=== PATIENT | female | born 1995 | race Caucasian/White ===

== ENCOUNTER 2023-04-05 01:03 | Emergency (ER) | payer BC, SELFPAY ==
[2023-04-05 01:06] VITALS: BP 161/95; PULSE 104; RESP 16; TEMP 37; O2SAT 100; BMI 34.9
--- NOTE | 2023-04-05 01:19 | ED_ITS ---
HPI - General Adult General Chief complaint: Extremity Injury, Upper Stated complaint: right middle finger laceration Time Seen by Provider: 04/05/23 01:12 Source: patient Mode of arrival: walk-in History of Present Illness HPI narrative: The patient is coming to the ER after she sustained a laceration to the right middle finger after she was slicing some veggeis , the patient denies any other injury denies any other complaints that the patient does not remember the last time she had a tetanus booster Related Data Previous Rx's Medication Instructions Recorded bacitracin 500 unit/gram topical 1 applic topical DAILY #14 grams 04/05/23 ointment Allergies Allergy/AdvReac Type Severity Reaction Status Date / Time No Known Drug Allergies Allergy Verified 04/05/23 01:10 Review of Systems ROS Status of ROS 10 or more systems reviewed and unremarkable except as noted in history and below PFSH PFS Social History Smoking status: Never smoker Exam Narrative Exam Narrative: Nurses notes and vital signs reviewed and patient is not hypoxic. General: Well-appearing and in no apparent distress. Skin: Warm, dry, no pallor noted. No rash. Head: Normocephalic, atraumatic. Neck: Supple, non-tender. Eye: Pupils are equal, round and EOMI. No scleral icterus. Ears, Nose, Mouth, and Throat: TM are clear, no nasal mucosal hypertrophy. Oral mucosa is moist, no posterior oropharynx erythema, uvula is mid-line Cardiovascular: Regular Rate and Rhythm without murmur, gallop or rub. Respiratory: No accessory muscle use or respiratory distress. Lungs are clear to auscultation, no wheezing, rales or rhonchi Chest Wall: no tenderness Back: No midline thoracic or lumbar vertebral tenderness. No CVA tenderness Musculoskeletal: normal ROM, no calf or popliteal tenderness, no lower extremity edema/swelling to the tip of the right middle finger the patient have an area of almost, 2 x 3 mm oval in shape taking the skin of the tip of the finger not reaching the nail and there is no exposure to any underlying stru cture there is no foreign body there is no tendon injury GI: Abdomen is soft, non-distended. Normal bowel sounds. No masses appreciated. No tenderness to palpation. No rebound, guarding, or rigidity noted. Neurological: A&O x4. No cranial nerve dysfunction observed. No truncal ataxia. Moves all extremities. Sensation intact. Psychiatric: Cooperative and interactive. Normal mood and affect. Constitutional Vital Signs, click to edit/add: Last Vital Signs Temp 98.6 F 04/05/23 01:06 Pulse 104 H 04/05/23 01:06 Resp 16 04/05/23 01:06 BP 161/95 H 04/05/23 01:06 Pulse Ox 100 04/05/23 01:06 O2 Del Method Room Air 04/05/23 01:06 Course Vital Signs Vital signs: Vital Signs Temperature 98.6 F 04/05/23 01:06 Pulse Rate 104 H 04/05/23 01:06 Respiratory Rate 16 04/05/23 01:06 Blood Pressure 161/95 H 04/05/23 01:06 Pulse Oximetry 100 04/05/23 01:06 Oxygen Delivery Method Room Air 04/05/23 01:06 Temperature 98.6 F 04/05/23 01:06 Pulse Rate 104 H 04/05/23 01:06 Respiratory Rate 16 04/05/23 01:06 Blood Pressure 161/95 H 04/05/23 01:06 Pulse Oximetry 100 04/05/23 01:06 Oxygen Delivery Method Room Air 04/05/23 01:06 Medical Decision Making MDM Narrative Medical decision making narrative: The patient wound was cleaned thoroughly after which initially applying Gelfoam was not enough to control bleeding then the patient had a finger block with 1% lidocaine almost 2 to 3 cc infiltrated to the area at the third metacarpal phalangeal joint and the patient tolerated the procedure well after that the patient had 3 stitches applied to the tip of the finger The patient also had a clean dressing applied as well as finger splint instructed to keep the hand clean and dry The patient was instructed about proper wound care The patient is to follow up with primary care physician in next 2-3 days or to return to the emergency department should any of the signs or symptoms worsen or new symptoms develop. The patient agrees with the following Diagnosis and Treatment plan and the patient will be discharged home. Discharge Plan Discharge Chief Complaint: Extremity Injury, Upper Clinical Impression: Finger laceration Patient Disposition: Home, Self-Care Time of Disposition Decision: 01:27 Condition: Good Prescriptions / Home Meds: New bacitracin 500 unit/gram ointment 1 applic topical DAILY Qty: 14 0RF Instructions: Finger Laceration (ED) Stand Alone Forms: Portal Instructions Referrals: HEIDY ORTIZ [Primary Care Provider] - 1 week
[2023-04-05] MEDS: SURGIFOAM GEL SPONGE SIZE 100 1 EACH TOPICAL (01:43)
[2023-04-05] MEDS: ADACEL DIPH,PERTUSS(ACELL),TET VAC/PF 0.5 ML ADULT SYRINGE IM (01:44)
[2023-04-05] MEDS: LIDOCAINE HCL 1% 100 MG/10 ML MDV INJ (02:02)
== END 2023-04-05 02:39 | disposition home or self-care (01) ==
PROVIDERS: Emergency Provider Emergency Medicine; PCP Family Medicine
DX: S61.212A Laceration without foreign body of right middle finger without damage to nail, initial encounter (principal); Z23 Encounter for immunization; W26.8XXA Contact with other sharp object(s), not elsewhere classified, initial encounter
CPT/HCPCS: 12001; 90471; 90715; 99283

== ENCOUNTER 2025-01-17 08:05 | Outpatient (OUT) | payer BC, SELFPAY ==
[2025-01-17 09:06] LABS: Hematocrit 38.7 % (36.0-48.0); Hemoglobin 12.4 g/dL (12.0-16.0); Immature Granulocytes Abs Auto 0.01 10^3/uL (0.00-0.03); Immature Granulocytes Pct Auto 0.2 % (0.0-0.5); Lymphocytes Absolute Auto 1.9 10^3/uL (1.2-3.8); Mean Corpuscular HGB Conc 32.0 g/dL (29.9-35.2); Mean Corpuscular Hemoglobin 25.6 pg (26.7-34.0); Mean Corpuscular Volume 80.0 fL (81.0-99.0); Platelet Count 263 10^3/uL (150-450); Red Blood Count 4.84 10^6/uL (4.20-5.40); White Blood Count 5.8 10^3/uL (4.0-11.0)
[2025-01-17 09:52] LABS: Alanine Aminotransferase 23 U/L (14-59); Albumin Globulin Ratio 1.1; Albumin Level 4.1 g/dL (3.4-5.0); Alkaline Phosphatase 93 U/L (46-116); Anion Gap 8.9; Aspartate Amino Transferase 13 U/L (15-37); Blood Urea Nitrogen 8.0 mg/dL (7.0-18.0); Calcium 9.5 mg/dL (8.5-10.1); Carbon Dioxide 27.9 mmol/L (21.0-32.0); Chloride 106 mmol/L (98-107); Cholesterol 152 mg/dL (<=200); Estimated GFR (African America >60 (>=60 mL/min/1.73m^2); Estimated GFR (Non-African Ame >60 (>=60 mL/min/1.73m^2); Globulin 3.9 g/dL; Glucose 100 mg/dL (74-106); HDL Cholesterol 50 mg/dL (40-60); Potassium 3.8 mmol/L (3.5-5.1); Sodium 139 mmol/L (136-145); Total Protein 8.0 g/dL (6.4-8.2); Triglycerides 97 mg/dL (<=150); VLDL CHOLESTEROL 19.4 mg/dL
== END 2025-01-17 08:06 | disposition home or self-care (01) ==
PROVIDERS: PCP Family Medicine; Visit Provider Family Medicine
DX: Z00.00 Encounter for general adult medical examination without abnormal findings (principal); E55.9 Vitamin D deficiency, unspecified
CPT/HCPCS: 36415; 80053; 80061; 82306; 85025

== ENCOUNTER 2025-06-05 09:39 | Emergency (ER) | payer BC, SELFPAY ==
--- OUTSIDE RECORDS SUMMARY | 2023-12-05 05:30 | XMS_ITS ---
Author Organization The [facility] in [place] Address [address] [place] [address] Care Team Providers Care Butt Presser Name Role Phone Eleni Fisher Primary Care Provider [phone] REASON FOR VISIT wellness/pap? Encounters Encounter Location Date Provider Diagnosis [facility] [address] [place] [address] 12/05/2023 Eleni Fisher Plan Of Treatment Next Appt Details Provider Name:Eleni Mark es, 06/07/2025 10:45:00 AM, [address] [place], [address], Progress Notes * YONGValeriacy LDOB: 7 (29 yo F)Acc No.[id number]:12/05/2023 UNLOCKED PROGRESS NOTE Progress Note Patient: Kimberly ORDOÑEZ :?ARGENIS DuttaOB:1995???Age:28 Y ???Sex:FemaleDate:12/05/2023hone:[phone]:[address] [place] [id number] Subjective: * Chief Complaints: * 1 . Wellness/pap?. * Medical History: Objective: * Vitals: Assessment: Plan: * Treatment: * * Electronic signature of Eleni Fisher MD, [id number] on 06/05/2025 at 10:17 AM ESTSign off status: PendingVisit Status:?R/S (Rescheduled) * Provider: Samara Fisher MD Date: 0 12/05/2023 Generated for Printing/Faxing/eTransmitting on:?06/05/2025 10:17 AM EST
--- OUTSIDE RECORDS SUMMARY | 2025-05-23 05:15 | XMS_ITS ---
Author Organization The [facility] in [place] Address [address] [place] [address] Care Team Providers Care Fur Glazer Name Role Phone Eleni Fisher Primary Care Provider [phone] REASON FOR VISIT back pain, possible uti Encounters Encounter Location Date Provider Diagnosis [facility] [address] [place] [address] 05/23/2025 Eleni Fisher Plan Of Treatment Next Appt Details Provider Name:Eleni Mark es, 06/07/2025 10:45:00 AM, [address] [place], [address], Progress Notes * EARNESTINEKimberly ECHEVARRIA LDOB: 7 (29 yo F)Acc No.[id number]:05/23/2025 UNLOCKED PROGRESS NOTE Progress Note Patient: Kimberly ORDOÑEZ :?ARGENIS DuttaOB:1995???Age:29 Y ???Sex:FemaleDate:05/23/2025Phone:[phone]:[address] [place] [address] Subjective: * Chief Complaints: * 1 . Back pain, possible uti. * Medical History: Objective: * Vitals: Assessment: Plan: * Treatment: * * Electronic signature of Eleni Fisher MD, [id number] on 06/05/2025 at 10:17 AM ESTSign off status: PendingVisit Status:?CANC (Cancelled) * Provider: Samara Fisher MD Date: 07/24/2024 Generated for Printing/Faxing/eTransmitting on:?06/05/2025 10:17 AM EST
--- OUTSIDE RECORDS SUMMARY | 2025-06-04 06:15 | XMS_ITS ---
Author Organization The [facility] in [place] Address [address] [place] [address] Care Team Providers Care Automobile Assembly Supervisor Name Role Phone Eleni Fisher Primary Care Provider [phone] REASON FOR VISIT back pain Encounters Encounter Location Date Provider Diagnosis [place] [address] [place] [address] 06/04/2025 Eleni Fisher Plan Of Treatment Next Appt Details Provider Name:Eleni Mark es, 06/07/2025 10:45:00 AM, [address] [place], [address], Progress Notes * MOIRAValeriacy LDOB: 7 (29 yo F)Acc No.[id number]:06/04/2025 UNLOCKED PROGRESS NOTE Established Patient: Kimberly ORDOÑEZ :?Eleni Fisher MDDOB:1995???Age:29 Y ???Sex:FemaleDate:06/04/2025Phone:[phone]:[address] [place] [address] Subjective: * Chief Complaints: * 1 . Back pain. * Medical History: Objective: * Vitals: Assessment: Plan: * Treatment: * * Electronic signature of Eleni Fisher MD, [id number] on 06/05/2025 at 10:17 AM ESTSign off status: PendingVisit Status:?R/S (Rescheduled) * Provider: Samara Fisher MD Date: 1 08/05/2024 Generated for Printing/Faxing/eTransmitting on:?06/05/2025 10:17 AM EST
--- OUTSIDE RECORDS SUMMARY | 2025-06-05 04:25 | XMS_ITS | Continuity of Care Document ---
Author Organization [facility] Address [address] [place] [address] Phone Care Team Providers Care General Office Assistant Name Role Phone Eleni Fisher MD Primary Care Provider Kathryn Harper APRN Attending Provider Nancy Padgett APRN Attending Provider [phone] Care Teams Patient Care Team Team Status: Active Member Role/Relationship Status Dates Eleni Fisher MD Primary Care Provider Active Visit Care Team Team Status: Inactive Member Role/Relationship Status Dates Eleni Fisher MD Primary Care Provider Active Start: April 10, 2025 End: April 10, 2025Yanni Lomax ProviderActiveStart: April 10, 2025 End: April 10, 2025 Patient Care Team Team Status: Inactive Member Role/Relationship Status Dates Eleni Fisher MD Primary Care Provider Active Start: June 05, 2025 End: June 05Yanni Stern ProviderActiveStart: June 05, 2025 End: June 05, 2025 Chief Complaint and Reason for Visit Chief Complaint Admit Date Low back pain April 10, 2025 9 :06am back pain,chills,sweats June 05 9:02am Reason for Visit Admit Date Sciatica, right side April 10, 2025 9:06am Allergies, Adverse Reactions, Alerts Allergen Type Severity Reaction Last Updated Verified Status acetaminophen Allergy Mild Vomiting June 05, 2025 9:03a m Yes Active oxycodone Allergy Mild Vomiting June 05, 2025 9:03am Ye s Active Social History Smoking Status Status Start Date End Date Date of Observa tion Never smoked tobacco (finding) August 29, 2024 9:27am Observation Status Observation Response Date of Response Legal Sex Female (finding) [facility] 1995 Problems Active Problems Problem Diagnosis/Recorded Date Onset Date Stat us Sciatica, right side April 10, 2025 8:51am Unknown Active Strain of fascia of lower back August 29, 2024 9:03am Unknown Active Lower back pain August 29, 2024 8:53am Unknown A ctive Primary osteoarthritis of both knees August 29, 2024 8:20am Unknown Active Anxiety August 29, 2024 8:20am Unknown Acti ve Patellar bursitis of left knee August 29, 2024 8:20am Unknown Active Bursitis of right patella August 29, 2024 8:20am Unkn own Active Kidney stones August 29, 2024 8:20am Unknown Act rico GERD (gastroesophageal reflux disease) August 29 8:20am Unknown Active Allergic rhinitis August 29, 2024 8:20am Unknown Active Medications Medication Status Dose Units Route Directions Qty Days Refills S tart Date Stop Date End Date Reason(s) Instructions Adherence Ibuprofen (Advil) 200 mg Tablet Discontinued 200 MG PO Three times daily as needed for Pain September 17, 2018 11:00pmOctw[facility] 2024 8:08amMedroxyprogesterone 150 mg/mL nkbvzbvYhbnuosauzkd199MJFUGgoba 2018 11:00pmMar 2024 8:26am Ciprofloxacin Hcl 500 mg dldovhDarxyfjjkrtk648LFVEL39R47Ltkcb 2018 11:00pm August 29, 2024 8:18amOxycodone-Acetaminophen 5-325 mg vtiqpiUwqsfoxjqrmx2EDHUP Q6H as needed for xzlo8556Bsjgb 2018Mar2024 8:25amCalculus of kidneyOmeprazole 20 mg capsule,delayed release(DR/EC)Ctksbx86KVVEIdcnhRvmxp 2024 11:00pmComplies with drug therapyAlbuterol Sulfate 90 mcg/actuation HFA aerosol kjesofsOuiegk9VVSAGQZWTRDJRKLgbbr 4 hoursMar 2024 11:00pm FreeTextSi puff as needed Inhalation every 4 hrs; Note: Source Status: Taking; Provider: Rajesh Yarbrough ( )Complies with drug therapy Sertraline 25 mg xlkhtpIxcdgh23PXPWPszyuBdiwz 2024 11:00pmFreeTextSi 1/2 tablet Orally Once a day; Note: Source Status: Taking; Refills: 0; Provider: DIANA HEATSIERRA TUCSONComplies with drug therapyNaproxen 500 mg lvbnqcYpyvhngkizty460VX POTwice daily as needed for rivl55743Htrko 2024 11:00pmOctwilliamson arh hospital 2024 8:08amCyclobenzaprine 10 mg amzpqtDubspezvklww24BDKLXcaqa times daily as needed for muscle elbdb9249Yotre 2024 11:00pmOctwilliamson arh hospital 2024 8:08amLidocaine 5 % adhesive patch,fodwcltfjDtjfrfjafxsu0FLTJTCAHVMLFDuiay091Tzhva 2024 11:00pmOctwilliamson arh hospital 2024 8:08amleave on most painful area for up to 12 hrs Ergocalciferol (Vitamin D2) 1,250 mcg (50,000 unit) qlqtopzMjalnt6679BORMNxvmat weekFormerly [facility] 2024 11:00pmComplies with drug therapyCyclobenzaprine 10 mg nkbeehVmmvpm00WYWDVkhwz times daily as needed for muscle tphnd7413Efabzyb 2024 11:00pmComplies with drug therapyPrednisone 20 mg qftgbvUftznjfvsvmz45ZGLC .YTKGUGW023Uimvxnb 2024 11:00pmDeceer 2024 9:04amTake 3 tabs po daily x 3 days, then take 2 tabs po daily x 3 days, then take 1 tab po daily x 3 days.Lidocaine 5 % adhesive patch,wowmbrvbaGfjswg8ZFBBQXGWNDWJMldyf203Gjrkrtp 2024 11:00pmleave on most painful area for up to 12 hrsComplies with drug therapyTamsulosin 0.4 mg capsuleActiveMGPODeceer 2024 12:00amComplies with drug therapy Vital Signs Vital Reading Result Reference Range Collection Date/Time Height 65 [in_i] April 10, 2025 8:02jnVueyfo691.32 kgOctwilliamson arh hospital 2024 8:09amBody Pwhuoheulhk94.8 [degF]97.6-99.0Octwilliamson arh hospital 2024 8:09amHeart Rate97 /hip16-230 April 10, 2025 8:09amRespiratory rate16 /jmt19-86Zdffbcm 2024 8:09am Oxygen saturation by Pulse ldaovqpm32 %95-100Octwilliamson ar[facility] hospital 2024 8:09amBP Oyhctmlq962 mm[Hg]100-140Octwilliamson arh hospital 2024 8:31amBP Mspjpoodb82 mm[Hg]60-100 April 10, 2025 8:31amBMI (Body Mass Index)38.2 kg/g9Zjegikv 2024 8:39ypEjztqh58 [in_i]June 05, 2025 9:95blEzhazn685.32 kgDeceer 2024 9:11amBody Qvkqynnaagb89.9 [degF]97.6-99.0Deceer 2024 9:11amHeart Rzlc675 /zqk40-758Lzkwdslk 2024 9:11amRespiratory rate18 /uid44-94Incpijxt 2024 9:11amOxygen saturation by Pulse woapsdor25 %95-100Deceer 2024 9:11amBP Kmsdhmzk129 mm[Hg]100-140December 2024 9:11amBP Ddgklqmzr48 mm[Hg]60-100Deceer 2024 9:11amBMI (Body Mass Index)38.2 kg/i8Yscngeca 2024 9:11am Advance Directives Advance Directive Response Recorded Date/ Time Advance Directives No September 12 2:14pm Insurance Providers Guarantor Kimberly Pizarro Address [address] [place] [id number] Info.Home Phone: Payer Group Member ID Coverage Type Subscriber Relationship to Subscriber Effective Date Expiration Date Rafal Cowan Id: [id number] Canter Id: [id number] [address] [facility] [address] Home Phone: Email: declined [employer] [employer] [place] [id number] Canter Id: [id number] [address] [facility] [address] Home Phone: Email: declined [employer] Encounters Encounter Location(s) Arrival/Admit Date Discharge/Departure Date Discharge/Departure Disposition Provider(s) Departed Physician/ Provider Office Visit -[facility] April 10, 2025 9:06am April 10, 2025 9:49am Discharged to home care or self care (routine discharge) Miguelito Taylor APRN Departed Physician/ Provider Office Visit -[facility] June 05, 2025 9:02am June 05, 2025 9:24am Discharged to home care or self care (routine discharge) Miguelito Bang APRN Recent Diagnosis Onset Date Admit Date Sciatica, right side Unknown March 9:06am Assessments Diagnosis Onset Date Resolution Status Admit Date Sciatica, right side acuteOctober 2024 9:06am Plan of Treatment Author Kathryn Harper [facility]oredOctw[facility] 2024 8:53amExam concerning for sciatica. Patient had naproxen this AM already-500mg. Will treat with prednisone taper. Take with food. PRN flexeril- may cause drowsiness, caution advised. Continue tylenol, prn lidocaine patches. Discussed option of xray. Patient would like to hold off and check insurance coverage deductible. Recommend FU with PCP if not gradually improving over next week. Heat, gentle stretching, rest encouraged. Future Tests Future scheduled test information is unavailable Pending Tests Pending diagnostic test information is unavailable Future Visits Future appointment information is unavailable Future Procedures Future procedure information is unavailable Future Medications Future medication information is unavailable Patient Instructions Patient instructions are unavailable
[2025-06-05 09:44] VITALS: BP 161/98; PULSE 111; TEMP 37.1; O2SAT 99; BMI 38.3
--- NOTE | 2025-06-05 09:54 | CT_ITS ---
The [address] [address] Patient Name: ELLIOTT BEACH MRN: [id number] date: 1995 Sex: F Assigned Patient Location: ER Current Patient Location: .[facility] Accession/Order Number: [id number] Exam Date: 06/05/2025 10:33 Report Date: 06/05/2025 11:04 At the request of: LILA DELANEY DO Procedure: CT abdomen pelvis wo con CT ABDOMEN AND PELVIS WITHOUT CONTRAST COMPARISON: 10/14/2018 CLINICAL DATA: Right flank, groin and vaginal pain with pressure. Hematuria for the past few weeks. Spiral axial unenhanced images were obtained through the abdomen and pelvis. This CT exam was performed using one or more following dose reduction techniques: Automated exposure control, adjustment of the mA and/or kV according to patient size, or use of iterative reconstruction technique. Limited cuts through the lung bases show no contributory findings. Assessment of the intra-abdominal organs is slightly limited by the absence of contrast. There is cholelithiasis, without complication. No intrahepatic masses are identified. The spleen, pancreas and adrenal glands show no acute findings. No renal stones are identified on the left. A stone is present in the midpole region on the right measuring 8 mm in size. There is still slight fullness of the renal pelves, right greater than left however no calyceal dilatation. No ureteral dilatation or stones are seen. The abdominal aorta is normal caliber. Small mesenteric lymph nodes are present. No ascites is seen. The small bowel loops are normal caliber. There is mild right-sided colonic stool. The descending colon is decompressed. There is subtle thoracolumbar levoscoliotic curvature Images through the pelvis show no appendiceal inflammation. There is no dilated small bowel. The distal colon is decompressed. No diverticular disease is seen. There is a 2.4 cm left ovarian cyst. The urinary bladder is not well-distended for evaluation. There are no obvious intraluminal abnormalities. No ascites is seen. Small inguinal lymph nodes are again seen. CT/CT abdomen pelvis wo con IMPRESSION: CHOLELITHIASIS. RIGHT NEPHROLITHIASIS. NO BOWEL OR URINARY TRACT OBSTRUCTION. SMALL LEFT OVARIAN CYST. Impression dictated by: Suzy Brewer M.D. 06/05/2025 11:04 AM Dictation Location: [place] [address] Electronically authenticated by: [id number] Y Date: 06/05/2025 11:04
--- NOTE | 2025-06-05 10:09 | ED_ITS ---
HPI HPI - General Adult General Chief complaint: Urogenital-Female Stated complaint: NAUSEA, VOMITING, BACK & PELVIC PAIN Time Seen by Provider: 06/05/25 09:54 Source: patient Mode of arrival: walk-in History of Present Illness HPI narrative: Patient is a 29-year-old female presenting to the emergency department for evaluation of right-sided flank/abdominal pain. Patient states she has had been having pain in the right side of her back for the last year. She has a history of kidney stones. She has been having intermittent pain in the right flank for a while, however over the last week she has been having nausea, vomiting, and right-sided abdominal pain as well. She notes some blood in her urine, however this cleared up. She is seen by urgent care and obtain an x-ray of her abdomen which was negative. She was treated with Flomax and discharged home. She feels feverish and is complaining of pain in the right side of her flank/abdomen. She states she has vomited a few times and has been unable to keep food down. She states the abdominal pain is constant in nature. She states she has pressure in the lower part of her bladder with increased urinary frequency. No dysuria. She denies history of intra-abdominal surgeries. She is otherwise healthy with no chronic medical conditions. Related Data Home Medications ?Medication ?Instructions ?Recorded ?Confirmed omeprazole 20 mg capsule,delayed mg 06/05/25 release sertraline 25 mg tablet mg 06/05/25 tramadol 50 mg tablet mg 06/05/25 Previous Rx's ?Medication ?Instructions ?Recorded ondansetron 4 mg disintegrating 4 mg PO Q8H PRN nausea and 06/05/25 tablet vomiting 5 days #10 tabs tamsulosin 0.4 mg capsule 0.4 mg PO DAILY #14 caps tramadol 50 mg tablet 50 mg PO Q8H PRN pain 5 days #10 06/05/25 tabs Allergies Allergy/AdvReac Type Severity Reaction Status Date / Time No Known Drug Allergies Allergy Verified 06/05/25 09:43 Opioid HPI Opioid Management Most Recent Opioid Data: Last Pain Scale 5 Today, 10:21 Last AUG Pain Assessment Today, 10:21 Review of Systems ROS Status of ROS 10 or more systems reviewed and unremark able except as noted in history and below PFSH PFSH Social History Smoking status: Never smoker Little interest or pleasure in doing things: not at all Feeling down, depressed, or hopeless: not at all Exam Narrative Exam Narrative: CONSTITUTIONAL: Nontoxic appearing, answering questions and following commands appropriately SKIN: Was warm and dry. EYES: Sclerae white. EARS, NOSE, THROAT: Moist oral mucosa. RESPIRATORY: Clear to auscultation bilaterally, no wheezes, crackles, or stridor, no use of accessory muscles CARDIOVASCULAR: Normal rate and regular rhythm. There is no S3, S4, murmur, rub. GASTROINTESTINAL: There is tenderness to palpation in the right upper quadrant. Negative Matute sign. Negative CVA tenderness bilaterally. No tenderness at McBurney's point. MUSCULOSKELETAL: No peripheral edema. NEUROLOGIC: Patient is awake and alert. Facies were symmetrical. Constitutional Vital Signs, click to edit/add: Last Vital Signs Temp 98.8 F 06/05/25 09:44 Pulse 111 H 06/05/25 09:44 Resp 16 06/05/25 09:44 BP 157/92 H 06/05/25 11:32 Pulse Ox 99 06/05/25 10:27 O2 Del Method Room Air 06/05/25 09:44 Course Vital Signs Vital signs: Vital Signs Temperature 98.8 F 06/05/25 09:44 Pulse Rate 111 H 06/05/25 09:44 Respiratory Rate 16 06/05/25 09:44 Blood Pressure 161/98 H 06/05/25 09:44 Pulse Oximetry 99 06/05/25 09:44 Oxygen Delivery Method Room Air 06/05/25 09:44 Temperature 98.8 F 06/05/25 09:44 Pulse Rate 111 H 06/05/25 09:44 Respiratory Rate 16 06/05/25 09:44 Blood Pressure 157/92 H 06/05/25 11:32 Pulse Oximetry 99 06/05/25 10:27 Oxygen Delivery Method Room Air 06/05/25 09:44 Medical Decision Making MDM Narrative Medical decision making narrative: Patient is a 29-year-old female presenting to the emergency department with right flank/right upper quadrant pain x 1 week. Her vital signs arrival are significant for hypertension and tachycardia, likely related to her acute pain. She is otherwise afebrile and hemodynamically stable. Examination as outlined above. Differential diagnosis includes nephrolithiasis, cholecystitis, cholelithiasis, gastritis, pyelonephritis, or other electrolyte/metabolic derangement. IV was established and laboratory studies were obtained. CT abdomen/pelvis was ordered. She was treated symptomatically with 1 L bolus normal saline, IV ketorolac, IV morphine, and IV Zofran. CT abdomen/pelvis independently reviewed and interpreted by myself and radiology demonstrated nonobstructing 8 mm nephrolithiasis within the pole of the right kidney. Cholelithiasis without evidence of cholecystitis. Laboratory studies were unremarkable. No significant electrolyte or metabolic derangement. No evidence of acute kidney injury. No anemia, leukocytosis, or thrombocytopenia. No transaminitis or hyperbilirubinemia. test negative. Lipase not elevated. Urinalysis negative for acute infection. On reevaluation, patient states she feels improved since her ED arrival. Her pain is now rated a 2/10, initially was a 6/10. Her presentation is consistent with nephrolithiasis and/or symptomatic cholelithiasis. I do believe she stable for discharge. She is tolerating p.o. and her pain is under control. I gave her information for the surgery clinic and urology clinic for further care. Return precautions were given including any new or concerning symptoms such as intractable right upper quadrant pain, fevers, or inability to tolerate oral intake. Patient understands and agrees to plan. FINAL IMPRESSION: #Acute symptomatic cholelithiasis #Acute right-sided nephro lithiasis DISPOSITION: Discharged home CONDITION: Good Medical Records Medical records reviewed: Yes I reviewed the patient's medical records Lab Data Lab results reviewed: Yes I reviewed the patient's lab results Labs: Lab Results 06/05/25 06/05/25 Range/Units 09:56 10:03 WBC 11.0 (4.0-11.0) 10^3/uL RBC 4.95 (4.20-5.40) 10^6/uL Hgb 12.7 (12.0-16.0) g/dL Hct 39.5 (36.0-48.0) % MCV 79.8 L (81.0-99.0) fL MCH 25.7 L (26.7-34.0) pg MCHC 32.2 (29.9-35.2) g/dL RDW 13.7 (11.0-15.0) % Plt Count 291 (150-450) 10^3/uL MPV 10.8 (9.5-13.5) fL Neut % (Auto) 64.3 (43.0-75.0) % Lymph % (Auto) 25.3 (20.5-60.0) % Calloway % (Auto) 6.2 (1.7-12.0) % Eos % (Auto) 3.2 (0.9-7.0) % Baso % (Auto) 0.8 (0.2-2.0) % Neut # (Auto) 7.1 H (1.4-6.5) 10^3/uL Lymph # (Auto) 2.8 (1.2-3.8) 10^3/uL Calloway # (Auto) 0.7 (0.3-0.8) 10^3/uL Eos # (Auto) 0.4 (0.0-0.7) 10^3/uL Baso # (Auto) 0.1 (0.0-0.1) 10^3/uL Abs Immat Gran (auto) 0.02 (0.00-0.03) 10^3/uL Imm/Tot Granulo (auto) 0.2 (0.0-0.5) % Sodium 139 (136-145) mmol/L Potassium 3.6 (3.5-5.1) mmol/L Chloride 103 (98-107) mmol/L Carbon Dioxide 28.2 (21.0-32.0) mmol/L Anion Gap 11.4 BUN 6.0 L (7.0-18.0) mg/dL Creatinine 0.55 (0.55-1.02) mg/dL Est GFR ( Amer) >60 (>=60 mL/min/1.73m^2) Est GFR (Non-Af Amer) >60 (>=60 mL/min/1.73m^2) BUN/Creatinine Ratio 10.9 Glucose 99 (74-106) mg/dL Calcium 9.2 (8.5-10.1) mg/dL Total Bilirubin 0.2 (0.2-1.0) mg/dL AST 17 (15-37) U/L ALT 29 (14-59) U/L Alkaline Phosphatase 84 (46-116) U/L Total Protein 7.7 (6.4-8.2) g/dL Albumin 4.1 (3.4-5.0) g/dL Globulin 3.6 g/dL Albumin/Globulin Ratio 1.1 Lipase 39.0 (16.0-77.0) U/L Serum HCG, Qual Negative (NEGATIVE) Urine Color Lt. yellow (YELLOW) Urine Clarity Sl cloudy (CLEAR) Urine pH 7.0 (5.0-9.0) Ur Specific Vickery 1.025 (1.005-1.025) Urine Protein Negative (NEG/TRACE) mg/dL Urine Glucose (UA) Negative (NEGATIVE) mg/dL Urine Ketones Negative (NEGATIVE) mg/dL Urine Occult Blood Large A (NEGATIVE) Urine Nitrite Negative (NEGATIVE) Urine Bilirubin Negative (NEGATIVE) Urine Urobilinogen 0.2 (0.2-1.0) EU/dL Ur Leukocyte Esterase Negative (NEGATIVE) Urine RBC 20-50 A (0-2) #/HPF Urine WBC 0-2 A (NONE SEEN) #/HPF Ur Squamous Epith Cells Moderate A (NONE/RARE) #/LPF Urine Crystals None seen (None Seen) #/HPF Urine Bacteria Trace A (NONE SEEN) #/HPF Urine Casts None seen (NONE SEEN) #/LPF Urine Mucus Small A (NONE SEEN) Ur Culture Indicated? No Imaging Data CT scan - abdomen: Attestation: I personally reviewed and interpreted this imaging study as follows: Radiologist's impression: ITS Impressions Abdomen/Pelvis CT 06/05/25 09:54 IMPRESSION: CHOLELITHIASIS. RIGHT NEPHROLITHIASIS. NO BOWEL OR URINARY TRACT OBSTRUCTION. SMALL LEFT OVARIAN CYST. Impression dictated by: Suzy Brewer M.D. 06/05/2025 11:04 AM Dictation Location: [facility] Electronically authenticated by: [id number] Y Date: 06/05/2025 11:04 Discharge Plan Discharge Chief Complaint: Urogenital-Female Clinical Impression: Cholelithiasis, Kidney stone on right side Patient Disposition: Home, Self-Care Time of Disposition Decision: 11:23 Condition: Good Mode of Transportation: Private Vehicle Prescriptions / Home Meds: New ondansetron 4 mg tablet,disintegrating 4 mg PO Q8H PRN (Reason: nausea and vomiting) 5 Days Qty: 10 0RF tramadol 50 mg tablet 50 mg PO Q8H PRN (Reason: pain) 5 Days Qty: 10 0RF tamsulosin 0.4 mg capsule 0.4 mg PO DAILY Qty: 14 0RF No Action tramadol 50 mg tablet sertraline 25 mg tablet omeprazole 20 mg capsule,delayed release(/EC) Print Language: Greek Instructions: Gallstones (ED), Kidney Stones (ED) Referrals: Ivan Williamson MD [Physician, Urology] - 1 week HEIDY ORTIZ [Primary Care Provider, Family Practice] - 1 week Néstor Jeffers DO [Physician, General Surgery] - As needed Discharge Date/Time: 06/05/25 11:46
[2025-06-05 10:11] LABS: Hematocrit 39.5 % (36.0-48.0); Hemoglobin 12.7 g/dL (12.0-16.0); Immature Granulocytes Abs Auto 0.02 10^3/uL (0.00-0.03); Immature Granulocytes Pct Auto 0.2 % (0.0-0.5); Lymphocytes Absolute Auto 2.8 10^3/uL (1.2-3.8); Mean Corpuscular HGB Conc 32.2 g/dL (29.9-35.2); Mean Corpuscular Hemoglobin 25.7 pg (26.7-34.0); Mean Corpuscular Volume 79.8 fL (81.0-99.0); Platelet Count 291 10^3/uL (150-450); Red Blood Count 4.95 10^6/uL (4.20-5.40); White Blood Count 11.0 10^3/uL (4.0-11.0)
[2025-06-05 10:15] LABS: Glucose Urine UA NEGATIVE (NEGATIVE)
[2025-06-05] MEDS: 0.9 % SODIUM CHLORIDE 1,000 ML 1000 ML IV (10:15)
--- OUTSIDE RECORDS SUMMARY | 2025-06-05 10:17 | XMS_ITS | Patient Health Record ---
Author Organization [facility] in [place] Address [address] [place] [address] Care Team Providers Care Apparel Embroidery Digitizer Name Role Phone Eleni Fisher Primary Care Provider Allergies Allergen (clinical drug ingredient) Drug/Non Drug Allergy documented on EMR Reaction Allergy Type Onset Date Status acetaminophen / oxycodone percocet (uncoded) nausea/vomiti ng Allergy Active Results Component Value Reference Range Notes CBC AUTO DIFF Reviewed date:03/21/2025 04:38:43 PM Interpretation: Performing Lab: Notes/Report: [facility] , White Blood Count 5.8 4.0-11.0 10 3/uL Red Blood Count4.844.20-5.40 10 6/xRSjvbceieqn37.412.0-16.0 g/fPVocfvabgds26.7 36.0-48.0 %Mean Corpuscular Yaaopt55.081.0-99.0 fLMean Corpuscular Hemoglobin 25.626.7-34.0 pgMean Corpuscular HGB Conc32.029.9-35.2 g/dLRed Cell Distribution Width14.111.0-15.0 %Platelet Gqflo421581-903 10 3/uLMean Platelet Jlxall52.69.5- 13.5 fLNeutrophils Percent Auto55.043.0-75.0 %Lymphocytes Percent Auto33.520.5- 60.0 %Monocytes Percent Auto6.11.7-12.0 %Eosinophils Percent Auto4.20.9-7.0 % Basophils Percent Auto1.00.2-2.0 %Immature Granulocytes Pct Auto0.20.0-0.5 % Neutrophils Absolute Auto3.21.4-6.5 10 3/uLLymphocytes Absolute Auto1.91.2-3.8 10 3/uLMonocytes Absolute Auto0.40.3-0.8 10 3/uLEosinophils Absolute Auto0.20.0- 0.7 10 3/uLBasophils Absolute Auto0.10.0-0.1 10 3/uLImmature Granulocytes Abs Auto0.010.00-0.03 10 3/uLPerforming Lab:see noteML - [facility] LB LIPID PROFILE Reviewed date:03/21/2025 04:38:43 PM Interpretation: Performing Lab: Notes/Report: [facility] ,Tljsdljexipxn64<=150 mg/yNHlwndsduujg848<=200 mg/dLHDL Mohdxciwihv9134-44 mg/dL > or =60 mg/dl - LOW CARDIOVASCULAR RISK <40 mg/dl - HIGH CARDIOVASCULAR RISK LDL Cholesterol Drfoyfcqon54.6 100-129 mg/dl NEAR OR ABOVE OPTIMAL >190 mg/dl VERY HIGH 160-189 mg/dl HIGH 130-159 mg/dl BORDERLINE HIGH <100 mg/dl OPTIMAL VLDL YKUPRIXQVUZ84.4Chol HDL Ratio3.0 4.4 - 7.1 AVERAGE RISK 3.3 - 4.4 LOW RISK 7.1 - 11.0 MODERATE RISK >11.0 HIGH RISK Performing Lab:see noteML - [facility] LBPROF 14(COMP METB) Reviewed date:03/21/2025 04:38:43 PM Interpretation: Performing Lab: Notes/Report: [facility] ,Rjrihp406495-304 mmol/LPotassium3.83.5-5.1 mmol/KSftyedhv64210-582 mmol/LCarbon Ndlhdto17.921.0-32.0 mmol/LAnion Gap8.9Cfppqol10358-255 mg/dLBlood Urea Nitrogen 8.07.0-18.0 mg/dLCreatinine0.620.55-1.02 mg/dLEstimated GFR ( Rajni>60 >=60 mL/min/1.73m 2Estimated GFR (Non- Ana>60>=60 mL/min/1.73m 2BUN Creatinine Ratio12.8Smosuuh1.58.5-10.1 mg/dLBilirubin Total0.60.2-1.0 mg/dL Aspartate Amino Wdkjiwdvrkj7696-80 U/LAlanine Ktpxzsqsbwxhrzop0628-76 U/L Alkaline Unmpjmwwwor7711-735 U/LTotal Protein8.06.4-8.2 g/dLAlbumin Level4.13.4- 5.0 g/dLGlobulin3.9Albumin Globulin Ratio1.1Performing Lab:see noteML - [facility] LBUA DIP AUTO WO MICRO ([id number]) - IN OFFICE Reviewed date:05/21/2025 08:35:00 AM Interpretation: Performing Lab: Notes/Report: COLORyellowYELLOW - AMBERCLARITYclearCLEAR - CLEARGLUCOSE, URINEnegNEG - NEG MG/DLBILIRUBIN, URINEnegNEG - NEGKETONES, URINEnegNEG - NEG MG/DLSPECIFIC GRAVITY1.0151.001 - 1.035BLOOD, URINE2+NEG - NEG MG/DLPH, URINE6.05.0 - 9.0 PROTEIN (ALB), URINEnegNEG - NEG MG/DLUROBILINOGEN, URINE0.20.2 - 1.0 MG/DL NITRITE, URINEnegNEG - NEGESTERASEnegNEG - NEGCULTURE, URINE w SENSITIVITY Reviewed date:05/23/2025 07:26:45 PM Interpretation:Negative Performing Lab:[facility], [address] [place], [address] Notes/Report: [facility] F[facility]: DR FISHER - OFFICE [id number] CULTUREFINAL(. - .) STATUS CLEAN CATCH MID-STREAM URINE RESEMBLES A CONTAMINATED URINE COLLECTION > 10,000 BUT < 100,000 CFU/ML XR Lumbar Spine (4-5 views) (Not yet reviewed by provider) Interpretation: Performing Lab: Notes/Report: VITAMIN D 25 [place] Reviewed date:03/21/2025 04:38:43 PM Interpretation: Performing Lab: Notes/Report: [facility] ,Vitamin D17.0 20-<30 ng/mL Vit D insufficient >100 ng/mL Potential Toxicity <20 ng/mL Vit D deficient 30-100 ng/mL Vit D sufficient Performing Lab:see noteML - [facility] LB Reason For Referral No Information Medications Medication SIG (Take, Route, Frequency, Duration) Notes Start Date End Date Status Ergocalciferol 1.25 MG (43555 UT) 1 capsule Oral ly once a week 5ActiveProAir HFA 108 (90 Base) MCG/ACT2 puffs as needed Inhalation QID prn cough/SOB; Duration: 30 days11/13/2021Not-TakingCyclobenzaprine HCl 10 MG Oral; Duration: 5 Days08/29/2024Not-TakingTamsulosin HCl 0.4 MG1 capsule Orally Once a day; Duration: 10 days5ActiveSertraline HCl 25 MGTAKE 1 TABLET BY MOUTH EVERY DAY FOR 90 DAYS; Duration: 90 daysActiveOmeprazole 20 MGTAKE 1 CAPSULE BY MOUTH EVERY DAY 30 MINUTES BEFORE MORNING MEAL; Duration: 90Active traMADol HCl 50 MG1 tablet Orally TID prn severe pain; Duration: 5 days 5ActiveNaproxen 500 MGOral; Duration: 15 Days5Active Social History Tobacco Use: Social History Observation Description Date Details (start date - stop date) Never Smoker NA - NA Tobacco Use/Smoking Question Answer Notes Patient is a nonsmoker Alcohol Screen (Audit-C) Question Answer Notes Did you have a drink containing alcohol in the p ast year? No Brbnck0LfkclbpzuuzoinHwnwgtqr Problems Problem Type SNOMED Code ICD Code Onset Dates Problem Status W/U Status Risk Notes Problem Anxiety disorder (463352095) Anxiety diso rder, unspecified (F41.9) ActiveconfirmedProblemChronic pain (24265693)Other chronic pain (G89.29)Active confirmedProblemSciatica (82015549)Lumbago with sciatica, right side (M54.41) ActiveconfirmedProblemCalculus of kidney (43645032)Calculus of kidney (N20.0) ActiveconfirmedProblemDysmenorrhea (730447664)Dysmenorrhea (N94.6)Active confirmedProblemExcessive and frequent menstruation (383452011)Menorrhagia with regular cycle (N92.0)ActiveconfirmedProblemBody mass index 30.00 to 34.99 (106485691096054)BMI 34.0-34.9,adult (Z68.34)ActiveconfirmedProblemSeasonal allergic rhinitis (391069325)Seasonal allergic reaction (J30.2)Activeconfirmed ProblemVitamin D deficiency (64339942)Vitamin D insufficiency (E55.9)Active confirmedProblemAllergic rhinitis (31520969)Allergic rhinitis, unspecified seasonality, unspecified trigger (J30.9)ActiveconfirmedProblemGastroesophageal reflux disease (345795582)Gastroesophageal reflux disease, unspecified whether esophagitis present (K21.9)Activeconfirmed Vital Signs Heart Rate 98 /min 12/28/2024 weight up 3 king nds, BP stable in last 9 months Respiratory Rate 16 /min 12/28/2024 weight up 3 pounds, BP stable in last 9 months Oximetry 99 % 12/28/2024 weight up 3 king nds, BP stable in last 9 months Blood pressure diastolic 82 mm Hg 12/28/2024 gilberto ght up 3 pounds, BP stable in last 9 months Height 65 in 12/28/2024 weight up 3 king nds, BP stable in last 9 months Blood pressure systolic 130 mm Hg 12/28/2024 weig ht up 3 pounds, BP stable in last 9 months Weight 223.2 lbs 12/28/2024 weight up 3 king nds, BP stable in last 9 months BMI 37.14 kg/m2 12/28/2024 weight up 3 king nds, BP stable in last 9 months Encounters Encounter Location Date Provider Diagnosis [facility] [address] [place] [address] 05/21/2025 Eleni Fisher Dysuria R30.0 [facility] [address] [place] [address] 12/28/2024 Eleni Fisher Encounter for genera l adult medical examination without abnormal findings Z00.00 ; Other chronic pain G89.29 ; Lumbago with sciatica, right side M54.41 ; Vitamin D insufficiency E55.9 ; Gastroesophageal reflux disease, unspecified whether esophagitis present K21.9 and Anxiety disorder, unspecified F41.9 [facility] [address] [place] [address] 10/25/[address] [facility] [place] [address]/12/2025[facility] [place] [address] [place] [address]/ Eleni [facility] [address] [place] [place] [address] 01/28/2025[facility] [address] [place] [address]/07/2024[facility] [place] [address] [place] [address]/02/2025Heather HaynesCalculus of kidney N20.0[place] [address] [place] [address]/Heather Fisher Assessments Encounter Date Diagnosis (ICD Code) Assessment Notes Treatment Notes Treatment Clinical Notes Section Notes 12/28/2024 Encounter for genera l adult medical examination without abnormal findings (ICD-10 - Z00.00) 12/28/2024Other chronic pain (ICD-10 - G89.29)05/21/2025Dysuria (ICD-10 - R30.0) 05/21/2025alculus of kidney (ICD-10 - N20.0)12/28/2024Lumbago with sciatica, right side (ICD-10 - M54.41)Naproxen as neeed - [facility] Kctyaxr8712/28/2024Vitamin D insufficiency (ICD-10 - E55.9)Start daily vitamin D 1000 or 2000units daily 12/28/2024Gastroesophageal reflux disease, unspecified whether esophagitis present (ICD-10 - K21.9)odbyya4612/28/2024nxiety disorder, unspecified (ICD-10 - F41.9)stable, continue current med12/28/2024OtherBack exercises material was printed Plan Of Treatment Pending Test Test Name Order Date LIPID PANEL (CHOL/TRIG/HDL/LDL) 12/29/19 25 VITAMIN D, 25 LEVEL (TOTAL) 12/28/2024 XR Lumbar Spine (4-5 views) 12/28/2024 PFT Complete 11/13/2021 CMP (COMP MET MUSA) w/eGFR CKD-EPI 2024 CBC WITH DIFF 12/28/2024 Next Appt Details Provider Name:Eleni oconnor, 06/07/2025 10:45:00 AM, [address] [facility], [place], [address], Insurance Providers Payer Name Payer Address Payer Phone Subscriber Number Group Number Insured Name Patient Relationship to Insured Coverage Start Date Coverage End Date [employer] PPO PLUS LOCAL PLAN [address] [place] [phone] [id number] Kimberly Luo Self - patient is the insured 9 Medications Administered Medication Instructions Date of Administration Dosage Notes Kenalog, 40 mg/mL mLpatient tolerated wellMedroxyprogesterone 150 mg mL Medical (General) History Medical History History ICD Code Seasonal allergies Vitamin D deficiencyDysmenorrheaMenorrhagiaAnxietyGERDSinusitis, unspecified chronicity, unspecified cnsmnahoN56.9Right middle fingertip laceration 04/05/23 Surgical History Surgery Date(Month/Year) Hospitalization History Reason Date(Month/Year) Low back pain ([facility]) 08/29/24 URI ([facility]) 12/22/2018 Kidney Stones? - [facility] 09/2018
[2025-06-05] MEDS: KETOROLAC TROMETHAMINE 30 MG/ML VIAL 15 MG IVP (10:18)
--- OUTSIDE RECORDS SUMMARY | 2025-06-05 10:18 | XMS_ITS | Clinical Summary ---
Author Organization [facility] [employer] [facility] tem Address [facility] [id number] [address] [place] [address] Care Team Providers Care Primer Powder Blender Wet Name Role Phone Eleni Fisher MD Primary Care Provider + [phone] Allergies Active AllergyReactionsCriticalityNoted DateCommentsOxycodone-Acetaminophen Nausea YjihDtd9304/03/2019 Medications MedicationSigDispense QuantityRefillsLast FilledStart DateEnd DateStatus cetirizine (ZyrTEC) 10 mg tablet Take 2.5 tablets (25 mg total) by mouth in the morning.Active omeprazole (PriLOSEC) 20 mg capsule Take 1 capsule (20 mg total) by mouth in the morning.Active EPINEPHrine (EPIPEN) 0.3 mg/0.3 mL auto-injector Inject 0.3 mL (0.3 mg total) into the appropriate muscle as needed (Anaphylaxis; Severe allergic reaction) for up to 1 dose. 1 each 01/28/2023ctive albuterol (PROVENTIL HFA;VENTOLIN HFA) 90 mcg/actuation inhaler Indications:History of asthmaInhale 2 puffs every 6 (six) hours as needed for wheezing. 18 g 01/28/2023ctive Active Problems ProblemNoted DateDiagnosed DateChest pain, unspecifiedAbnormal echocardiogram Encounters DateTypeDepartmentCare VnmmHjzvuqswxqd25/02/2025 2:03 PM EST - 05/14/2025 11:59 PM ESTHospital Encounter [facility] - [facility]iology [address] [place] [id number] Acute back pain with sciatica, right Discharge Disposition: Home05/14/2025Travelfrom Last 3 Months Family History Medical HistoryRelationNameCommentsNo Known ProblemsFatherNo Known Problems MotherRelationNameStatusCommentsFatherAliveMotherAlive Social History Tobacco UseTypesPacks/DayYears UsedDateSmoking Tobacco: Passive Smoke Exposure - Never SmokerSmokeless Tobacco: Never Tobacco Cessation:Counseling Given: No Alcohol UseStandard Drinks/WeekCommentsYes0 (1 standard drink = 0.6 oz pure alcohol)AUDIT-CAnswerDate RecordedFrequency of Alcohol ConsumptionNever 08/10/2018Average Number of DrinksNot on file08/10/2018Frequency of Binge DrinkingNot on file08/10/2018ChildcareAnswerDate RecordedChildcareUnknown 11/22/2018EmploymentAnswerDate DtxmwtygYymjbfovynAmumqcx24/12/2019Hunger ScreeningAnswerDate RecordedWithin the past 12 months we worried whether our food would run out before we got money to buy more.Never True01/28/2023Within the past 12 months the food we bought just didn't last and we didn't have money to get more.Never True3Purpose - LifeAnswerDate RecordedPurpose and direction in uonmXmzgldb31/11/2021CommentsUnknownSex and Gender InformationValueDate RecordedSex Assigned at BirthNot on fileLegal SexFemale 01/16/2015 11:52 AM EDTGender IdentityNot on fileSexual OrientationNot on file Last Filed Vital Signs Vital SignReadingTime TakenCommentsBlood Kcnqxqcl239/8008 4:47 PM EDT Oripl1643/18/2023 4:47 PM NZQWrfrhaeqcti33.1 ??C (98.7 ??F)01/28/2023 3:28 PM EDTRespiratory Thvb932101/28/2023 4:47 PM EDTOxygen Ewbmourzqx958%01/28/2023 4:47 PM EDTInhaled Oxygen Concentration--Yqsllu08.9 kg (207 lb)01/28/2023 3:28 PM EDT Mttoqr848.1 cm (5' 5 )02/01/2020 9:32 AM EDTBody Mass Index34.45002/01/2020 9:32 AM EDT Plan of Treatment Health MaintenanceDue DateLast DoneCommentsDepression Cxhipjeka48/27/2009Tobacco Ldyxufwit50/27/2009Pap Smear2017Adult BMI Yruepfmsx93/ COVID-19 Vaccine ( season)/, 11/07/2020Influenza Jsaibix9502/11/2025DTaP,Tdap and Td Vaccines (8 - Td or Tdap), 12/26/2009, 01/12/2002, Additional history exists Medical Devices Not on file Procedures Procedure NamePriorityDate/TimeAssociated DiagnosisCommentsXR SPINE LUMBAR MIN 4 MKTMjptopm67/02/2025 2:21 PM EST Acute back pain with sciatica, right from Last 3 Months Results * X-ray spine lumbar minimum 4 views (05/14/2025 2:21 PM EST)Anatomical Region LateralityModalityMSK, Neuro, Spine, L-spineN/AComputed RadiographySpecimen (Source)Anatomical Location / LateralityCollection Method / VolumeCollection TimeReceived Time05/14/2025 3:58 PM EST Narrative 05/14/2025 3:59 PM EST EXAM: XR SPINE LUMBAR MIN 4 VWS INDICATION: Pain COMPARISON: None TECHNIQUE: 3 views of the lumbar spine FINDINGS/IMPRESSION: Vertebral body heights, densities, and alignment are normal. No significant shift on flexion or extension views. Minimal degenerative changes at L4-L5 and L5-S1. No acute fracture Finalized by Cornelius Talamantes on 05/14/2025 3:59 PM Procedure Note Cornelius Talamantes MD - 05/14/2025 EXAM: XR SPINE LUMBAR MIN 4 VWS INDICATION: Pain COMPARISON: None TECHNIQUE: 3 views of the lumbar spine FINDINGS/IMPRESSION: Vertebral body heights, densities, and alignment are normal. Nosignificant shift on flexion or extension views. Minimal degenerativechanges at L4-L5 and L5-S1. No acute fracture Finalized by Cornelius Talamantes on 05/14/2025 3:59 PM Authorizing ProviderResult TypeResult StatusHeachiquis Fisher MDIMCecilia DIAGNOSTIC IMAGING ORDERABLESFinal Result from Last 3 Months Insurance Care Teams Team MemberRelationshipSpecialtyStart DateEnd Date Eleni Fisher MD [address] [place] [id number] PCP - GeneralFamily Lcplfryh88/15/17
--- OUTSIDE RECORDS SUMMARY | 2025-06-05 10:18 | XMS_ITS | Clinical Summary ---
Author Organization [facility] Address [address] [place] [address] Care Team Providers Care Non Destructive Evaluation Manager Name Role Phone Eleni Fisher MD Unavailable [phone] Social History Tobacco UseTypesPacks/DayYears UsedDateSmoking Tobacco: Never Assessed CommentsUnknownSex and Gender InformationValueDate RecordedSex Assigned at Not on fileLegal OzjLuepwx08/15/2023 8:00 PM EDTGender IdentityNot on fileSexual OrientationNot on file Last Filed Vital Signs Vital SignReadingTime TakenCommentsBlood Hwfnnxjh581/72001/31/2018 12:00 PM EDT Pulse--Temperature--Respiratory Rate--Oxygen Saturation--Inhaled Oxygen Concentration--Yaentf07.2 kg (190 lb)01/31/2018 12:00 PM OCCGwogtn609.1 cm (5' 5 )01/31/2018 12:00 PM EDTBody Mass Index31.62001/31/2018 12:00 PM EDT Plan of Treatment Not on file Insurance Care Teams Team MemberRelationshipSpecialtyStart DateEnd Date Eleni Fisher MD [address] [place] [id number] PCP - External PCPFamily [facility]11/20/22
[2025-06-05] MEDS: MORPHINE SULFATE 2 MG/ML SYRINGE IV (10:21)
[2025-06-05 10:26] VITALS: O2SAT 98
[2025-06-05 10:26] LABS: Cast Seen? NONE SEEN #/LPF (NONE SEEN); Crystals Seen? None Seen #/HPF (None Seen); Urine Culture Indicated NO
[2025-06-05 10:27] VITALS: BP 138/106; O2SAT 99
[2025-06-05 10:30] LABS: Alanine Aminotransferase 29 U/L (14-59); Albumin Globulin Ratio 1.1; Albumin Level 4.1 g/dL (3.4-5.0); Alkaline Phosphatase 84 U/L (46-116); Anion Gap 11.4; Aspartate Amino Transferase 17 U/L (15-37); Blood Urea Nitrogen 6.0 mg/dL (7.0-18.0); Calcium 9.2 mg/dL (8.5-10.1); Carbon Dioxide 28.2 mmol/L (21.0-32.0); Chloride 103 mmol/L (98-107); Estimated GFR (African America >60 (>=60 mL/min/1.73m^2); Estimated GFR (Non-African Ame >60 (>=60 mL/min/1.73m^2); Globulin 3.6 g/dL; Glucose 99 mg/dL (74-106); Potassium 3.6 mmol/L (3.5-5.1); Sodium 139 mmol/L (136-145); Total Protein 7.7 g/dL (6.4-8.2)
[2025-06-05 11:32] VITALS: BP 157/92
[2025-06-05 12:02] LABS: Lipase 39.0 U/L (16.0-77.0)
== END 2025-06-05 11:46 | disposition home or self-care (01) ==
PROVIDERS: Emergency Provider Student in an Organized Health Care Education/Training Program; PCP Family Medicine
DX: N20.0 Calculus of kidney (principal); K80.20 Calculus of gallbladder without cholecystitis without obstruction; Z87.442 Personal history of urinary calculi; N83.202 Unspecified ovarian cyst, left side
CPT/HCPCS: 36415; 74176; 80053; 81001; 83690; 84703; 85025; 96361; 96374; 96375; 99284; J1885; J2270; J2405